=== PATIENT | female | born 1950 | race Caucasian/White ===

== ENCOUNTER 2019-08-08 10:34 | Emergency (ER) | payer MEDICARE ==
[2019-08-08] MEDS ORDERED: Adacel (T-DAP) 0.5 ML SYRINGE ONE (10:54)
[2019-08-08] MEDS ORDERED: Lidocaine 1% w/Epinephrine 1:100K 30 ML VIAL ONE (10:54)
--- NOTE | 2019-08-08 11:11 | CT ---
CT BRAIN WITHOUT CONTRAST: Date: 08/08/2019 HISTORY: Trauma to head. Denies loss of consciousness. Laceration above right eye. FINDINGS: There are no previous exams for comparison. No evidence of acute infarct, hemorrhage, midline shift, or abnormal extra-axial fluid collections ar e seen. The ventricular size is normal and the basilar cisterns are patent. The bony calvarium is int act. The visualized paranasal sinuses and mastoid air cells are well aerated. IMPRESSION: No CT evidence of acute intracranial process. POS: [facility]
[2019-08-08] MEDS ORDERED: Bacitracin 1 PK ONE (11:48)
--- NOTE | 2019-08-08 12:24 | RAD ---
Exam:Right shoulder 3 views HISTORY: Pain COMPARISON: None FINDINGS: Glenohumeral joint space is preserved. There are degenerative changes in the acromioclavicu lar joint space. No fracture or dislocation. Visualized right ribs and lung parenchyma does not demonstrate any acute abnormality IMPRESSION: No fracture or dislocation.
== END 2019-08-08 12:30 | disposition home or self-care (01) ==
LOC: NAV ERS 10:34
DX: S01.111A Laceration without foreign body of right eyelid and periocular area, initial encounter (principal); S40.011A Contusion of right shoulder, initial encounter; I10 Essential (primary) hypertension; M85.80 Other specified disorders of bone density and structure, unspecified site; Z79.82 Long term (current) use of aspirin; Z79.899 Other long term (current) drug therapy; W10.9XXA Fall (on) (from) unspecified stairs and steps, initial encounter
CPT/HCPCS: 12011; 70450; 90471; 90715; J2001